=== PATIENT | female | born 2000 | race Caucasian/White ===

== ENCOUNTER 2018-02-13 22:58 | Emergency (ER) | payer OTHER ==
[~2018-02-13] VITALS: Ht 170.2 cm; Wt 86.0 kg
[2018-02-13 23:01] VITALS: TEMP 36.7; Ht 170.2 cm; Wt 86.0 kg
--- NOTE | 2018-02-14 00:14 | EMERGENCY ROOM VISIT NOTE ---
History First contact with patient: 23:06 Chief Complaint: KNEEPAIN Stated Complaint: KNEE-CAN'T PUT WEIGHT ON IT,HURTS TO WALK History of Present Illness The patient is a 17 year old female who presents to the Emergency Room via private vehicle with complaints of "kneecan put weight on it, hurts to walk". The patient states that earlier today around 4:30 PM she was participating in a game of tug-of-war. She states that she fell, was lying on the ground and someone fell over her and she subsequently twisted and injured the left knee. She points to the medial aspect of the left knee as a location of which she rates as a 2/10 currently. Pain with weightbearing. She notes that after the event she was immobilized for a period of time with the knee in near full flexion and when she went to stand up she had severe pain. This prompted her arrival here. Review of Systems A complete 6-point Review of Systems was discussed with the patient, with pertinent positives and negatives listed in the History of Present Illness. All remaining Review of Systems questions can be considered negative unless otherwise specified. Past Medical/Surgical History No pertinent. Family History No pertinent. Social History Smoking Status: Never Smoker Patient is from the [facility], and is a [employer] student. Physical Exam Vital Signs Date Time Temp Pulse Resp B/P (MAP) Pulse Ox O2 Delivery O2 Flow Rate FiO2 02/14/18 00:29 77 18 125/78 99 02/13/18 23:01 36.7 78 18 127/82 99 Room Air Physical Exam VITAL SIGNS - Vital signs and nursing notes were reviewed. Stable. Afebrile. GENERAL -17-year-old female appearing her stated age who is in no acute distress. Communicates well with provider and answers questions appropriately. SKIN - Without rashes. Skin overlying the patient's left knee is unremarkable. The left lower extremity does not reveal any erythema, edema, or breaks in the integument. No bony deformity. No bruising. EXTREMITIES - No clubbing or peripheral cyanosis. No pretibial edema present. There is no tenderness of the left hip, left anterior thigh, left hip/hip region or left ankle. There is minimal tenderness overlying the medial aspect of the patient's left knee joint. No laxity. Negative anterior drawer. Calf is soft and nontender. No evidence of compartment syndrome. She is neurovascularly intact dista+5/5 strength noted in UE/LE bilaterally. Medical Decision & Procedures ER Provider Diagnostic Interpretation: Knee x-ray is read by myself and the attending physician: No acute fracture or dislocation. Medical Decision Patient was seen and evaluated as above in room C1. Review was performed of nursing notes and vital signs. After obtaining a thorough history and physical examination the above work up was performed. She presents to us today with left knee pain. She likely is experiencing a sprain of the MCL region. She was informed that other ligamentous injuries certainly are still possible. X- ray was obtained. No acute process. Ice packs and knee immobilizer provided. She notes that she will use the crutches she has at home. Patient asked if an MRI could be obtained today, and after thorough discussion with her we will defer this to orthopedics if they feel it is warranted. I do not believe that obtaining an MRI today in the emergency department will telephone exchange operator nor is warranted emergently. I did offer to call the patient's parents to discuss findings. Patient noted that she would relay the information to them. She is to call orthopedics first thing Friday to schedule follow-up. The patient was educated upon management, educated upon todays findings/results, educated upon symptoms in which to return, had questions answered prior to discharge, and was discharged home in good condition. In the evaluation and treatment of this patient, the following differential diagnoses were considered: Patellar Fracture, Tibial Plateau Fracture, Distal Femur Fracture, ACL Injury, PCL Injury, Collateral Ligament Injury, Pes Anserine Bursitis, Maisonneuve Fracture. Impression Primary Impression: Knee pain Departure Information Dispostion Home / Self-Care Condition GOOD Referrals [facility] (PCP) Derrick Moore MD Patient Instructions My [facility] Additional Instructions You have been treated in the Emergency Department for Knee Pain. For pain control, you can use the following [id number] medicines (if >12 yo): - Regular strength (325mg/tab) Tylenol (acetaminophen) 2 tabs every 4-6 hours as needed. Do not exceed 12 tablets in a 24 hour period. Avoid taking more than 3 grams (3000 mg) of Tylenol per day. This includes any other sources of acetaminophen you may take on a regular basis. - Regular strength (200 mg/tab) Advil (ibuprofen) 1-2 tabs every 4-6 hours as needed. Do not exceed a dose of 3200 mg per day. If this is a recent injury (<24 hrs), ice can be applied to the area of pain for the first 3 days to help decrease pain and inflammation. Ice massages can be performed by freezing water in a paper cup, peeling back the cup to expose the ice and then massaging over the affected area. You have been provided the number for an Orthopaedic Surgeon. You should call this number as soon as possible to establish a follow-up visit from today's Emergency Department visit. Keep the knee brace in place until cleared by Orthopedics. Use the crutches you have to keep ALL weight off of the knee until weight bearing is tolerable. Return to the Emergency Department if your current symptoms worsen despite treatment course outlined above.
[2018-02-14 00:29] VITALS: BP 125/78; PULSE 77; O2SAT 99
--- NOTE | 2018-02-14 05:26 | DIAGNOSTIC IMAGING REPORT ---
L KNEE 3 VIEWS CLINICAL HISTORY: 17 years-old Female presenting with Left knee pain. TECHNIQUE: Frontal, lateral, and sunrise views of the left knee were obtained. COMPARISON: None. FINDINGS: Knee joint congruent. No patellar subluxation. No acute fracture or malalignment. No advanced degenerative change. Trace knee joint effusion. IMPRESSION: 1. No acute osseous injury. 2. Trace knee joint effusion. Electronically signed by: Derrick Yanez M.D. 02/14/2018 5:25 AM Dictated Date/Time: 02/14/2018 5:23 AM
== END 2018-02-14 00:34 | disposition home or self-care (01) ==
LOC: C.EDB 22:59 → C.EDC 02-14 00:34
DX: M25.562 Pain in left knee (principal); X50.9XXA Other and unspecified overexertion or strenuous movements or postures, initial encounter; Y93.89 Activity, other specified